=== PATIENT | female | born 1985 | race Hispanic/Latino ===

== ENCOUNTER → 2023-03-20 | Day surgery (SDC) | payer OTHER ==
[~2023-03-20] MED LIST: ACCRUFER30 MG PO; FENTANYL CITRATE/PF 100MCG/2 ML INJ ONE; HYOSCYAMINE SULFATE 0.5 MG/ML INJ ONE; LACTATED RINGER'S 1,000 ML ONE; LEVOTHYROXINE112 MCG PO; LIDOCAINE HCL 2% LOCAL INJ 5 ML SDV VIAL INJ ONE; MIDAZOLAM HCL 2 MG/2 ML VIAL ONE; PROPOFOL IV EMULSION 10 MG/ML 20 ML VIAL ONE; VIT C PO
[2023-03-20 12:24] VITALS: TEMP 97
[2023-03-20 13:20] VITALS: BP 120/73; PULSE 81; RESP 16; O2SAT 100
[2023-03-20 14:42] LABS: WBC,FECAL (FECAL LACTOFERRIN) NEGATIVE (NEGATIVE)
[2023-03-22 15:14] LABS: ENDOMYSIAL ANTIBODIES, IGA Negative (Negative)
== END | disposition home or self-care (01) ==
LOC: ENDO 09:23
PROVIDERS: ATTEND Internal Medicine Gastroenterology
DX: D64.89 Other specified anemias (principal); K29.50 Unspecified chronic gastritis without bleeding; B96.81 Helicobacter pylori [H. pylori] as the cause of diseases classified elsewhere; K20.90 Esophagitis, unspecified without bleeding; K62.89 Other specified diseases of anus and rectum; D72.820 Lymphocytosis (symptomatic); K64.8 Other hemorrhoids; Z71.3 Dietary counseling and surveillance; E03.9 Hypothyroidism, unspecified; Z79.899 Other long term (current) drug therapy; Z68.29 Body mass index [BMI] 29.0-29.9, adult
CPT/HCPCS: 43239; 45380; 81025; 82784; 83516; 83630; 83993; 86256; 87045; 87177; 87324; 87328; 87449; C9113; J1980; J2001; J2250; J2704; J3010; J7121; 45378